=== PATIENT | female | born 1970 | race Caucasian/White ===

== ENCOUNTER 2016-10-15 16:41 | Emergency (ER) | payer OTHER ==
[~2016-10-15] VITALS: Ht 160 cm; Wt 70.0 kg
[2016-10-15 16:43] VITALS: Ht 160 cm; Wt 70.0 kg
--- NOTE | 2016-10-15 17:39 | RADRPT ---
PROCEDURE: XR Ankle. CLINICAL INDICATION: Right ankle pain TECHNIQUE: 3 views of the right ankle were performed. COMPARISON: None. FINDINGS: There is no acute fracture. Alignment is normal. Joint spaces are preserved. Soft tissues are grossly unremarkable. IMPRESSION: 1. No radiographic evidence of acute osseous abnormality of the right ankle. RPTAT: [facility] .Larry Mirza MD, MD Date Time Electronically viewed and signed by .Larry Mirza MD, on 10/15/2016 17:38 .K/
[2016-10-15] MEDS: HYDROCODONE/APAP (5/325) TAB PO ONE ×2 (17:45→17:58)
[2016-10-15] MEDS ORDERED: IBUP800T25 PO (17:49)
--- NOTE | 2016-10-15 17:49 | ERD ---
ER Documentation Chief Complaint Date/Time DATE: 10/15/16 TIME: 17:46 Chief Complaint syncope and right ankle pain s/p twisted it HPI This is a 46-year-old female who presents to the emergency room for evaluation of right ankle pain. This patient states that she was getting out of a car she twisted her ankle and fell forward. She denies hitting her head or loss of consciousness. She does state that she is having pain in her right ankle worse with movement of her right ankle. She denies any numbness or tingling in the foot and came to the ER today for evaluation. She states that she is unable to bear any weight on the right foot ROS All systems reviewed and are negative except as per history of present illness. PMhx/Soc Medical and Surgical Hx: pt denies Medical Hx, pt denies Surgical Hx Hx Alcohol Use: No Hx Substance Use: No Hx Tobacco Use: No Smoking Status: Never smoker Physical Exam Vitals Vital Signs Date Time Temp Pulse Resp B/P Pulse Ox O2 Delivery O2 Flow Rate FiO2 10/15/16 16:43 98.3 88 18 125/81 99 Physical Exam Const: No acute distress Head: Atraumatic Eyes: Normal Conjunctiva ENT: Normal External Ears, Nose and Mouth. Neck: Full range of motion..~ No meningismus. Resp: Clear to auscultation bilaterally Cardio: Regular rate and rhythm, no murmurs Abd: Soft, non tender, non distended. Normal bowel sounds Skin: No petechiae or rashes Back: No midline or flank tenderness Ext: Mild soft tissue swelling noted over the lateral aspect of the right ankle, no ecchymosis, no gross deformities, slightly tender to palpation, palpable dorsalis pedis and posterior tibial pulses bilaterally and equal. No cyanosis, or edema Neur: Awake and alert Psych: Normal Mood and Affect Results 24 hrs Current Medications Medications (Trade) Dose Ordered Sig/Luis Route PRN Reason Start Time Stop Time Status Last Admin Dose Admin Acetaminophen/ Hydrocodone Bitart (Erin (5/325)) 1 tab ONCE ONCE PO 10/15/16 17:30 10/15/16 17:31 DC Procedures/MDM X-ray Ankle 3V Interpreted by me: Bones: [No fracture] Joints: No dislocation A right ankle Grupo wrap splint was applied by the tech under my direct supervision. After splint application, the patient was appreciated to have a normal distal neurovascular examination. This 46-year-old female presents to the emergency room for evaluation of right- sided ankle pain. The patient twisted her ankle when trying to get out of a car. When I evaluated this patient she has slight soft tissue swelling of that ankle. I did not know any gross deformities or ecchymosis. The patient did have palpable dorsalis pedis pulse and posterior tibial pulses were equal bilaterally. Cap refill is less than 3 seconds in the right foot. X-ray was obtained which does not show any fractures. This patient likely has a ankle sprain with possible involvement of the anterior talofibular ligament. The patient will be placed in an Grupo wrap and will be given crutches. I advised her to keep her leg elevated, Motrin, and ice for home. She will also be given orthopedic referral as I instructed her that sometimes occult fractures do not show up immediately on x-ray. She verbalized understanding and is okay with the plan of care. Departure Diagnosis: Primary Impression: Right ankle sprain Condition: Stable DEAN ORTEGA DO October 15, 2016 17:49
== END 2016-10-15 18:01 | disposition home or self-care (01) ==
LOC: E/R 16:41
DX: S93.401A Sprain of unspecified ligament of right ankle, initial encounter (principal); W01.0XXA Fall on same level from slipping, tripping and stumbling without subsequent striking against object, initial encounter; Y92.9 Unspecified place or not applicable
CPT/HCPCS: 73610; Z7502; Z7610